=== PATIENT | male | born 1945 | race Caucasian/White ===

== ENCOUNTER 2021-08-27 08:54 | Outpatient (CLI) | payer MEDICARE | END 2021-08-27 08:55 | disposition home or self-care (01) | LOC: CSHCT 08:54 | PROVIDERS: ATTEND Internal Medicine Gastroenterology | DX: C18.6 Malignant neoplasm of descending colon (principal); K57.30 Diverticulosis of large intestine without perforation or abscess without bleeding; J44.9 Chronic obstructive pulmonary disease, unspecified; N20.0 Calculus of kidney | CPT/HCPCS: 71260; 74177; 82565 ==

== ENCOUNTER 2021-10-20 10:32 | Outpatient (CLI) | payer MEDICARE | END 2021-10-20 10:33 | disposition home or self-care (01) | LOC: CSHRAD 10:32 | PROVIDERS: ATTEND Surgery | DX: C18.9 Malignant neoplasm of colon, unspecified (principal); Z98.890 Other specified postprocedural states; K56.699 Other intestinal obstruction unspecified as to partial versus complete obstruction; Z93.2 Ileostomy status | CPT/HCPCS: 74176; 74280 ==

== ENCOUNTER 2023-03-26 14:33 | Emergency (ER) | payer MEDICARE, OTHER ==
[2023-03-26 15:44] LABS: #Basophils 0.1 10x3/uL (0.0-0.2); #Eosinphils 0.1 10x3/uL (0.0-0.5); #Monocytes 0.9 10x3/uL (0.0-1.1); #Neutrophils 6.8 10x3/uL (1.5-8.4); %Basophils 0.7 % (0.0-2.0); %Eosinophils 0.7 % (0.0-6.0); %Neutrophils 75.5 % (40.0-75.0); Hematocrit 40.4 % (38.8-50.0); Hemoglobin 13.2 g/dL (13.5-17.5); Mean Corpuscular HGB CONC 32.7 g/dL (32.0-36.0); Mean Corpuscular Hemoglobin 29.8 pg (27.0-33.0); Mean Corpuscular Volume 91.2 fl (81.2-95.1); Mean Platelet Volume 9.6 fl (7.4-10.4); Platelet Count 302 10x3/uL (150-450); RBC Distribution Width 13.6 % (11.5-14.5); Red Blood Cell (RBC) Count 4.43 10x6/uL (4.32-5.72)
[2023-03-26 15:52] LABS: ALT (SGPT) 15 U/L (8-55); AST (SGOT) 18 U/L (5-34); Albumin 3.9 g/dL (3.4-4.8); Alkaline Phosphatase 107 U/L (40-110); Anion Gap 17 mmol/L (10-20); BUN (Urea Nitrogen) 25 mg/dL (8.4-25.7); Bilirubin, Total 0.3 mg/dL (0.2-1.2); Calc. Creatinine Clearance 0 mL/min (70-130); Calcium 10.2 mg/dL (7.8-10.44); Carbon Dioxide 28 mmol/L (23-31); Chloride 102 mmol/L (98-107); Estimated GFR 52; Globulin 3.7 g/dL (2.4-3.5); Glucose 94 mg/dL (83-110); Potassium 4.5 mmol/L (3.5-5.1); Protein, Total 7.6 g/dL (5.8-8.1); Sodium 142 mmol/L (136-145)
[2023-03-26 16:38] LABS: Bilirubin Neg (Negative); Blood, Urine 50 (Negative); Clarity Clear (Clear); Glucose, Urine (Dipstick) Normal (Negative); Ketone, Urine Negative (Negative); Leukocyte Negative (Negative); Nitrite Negative (Negative); Protein, Urine (Dipstick) 15 mg/dl (Neg-Trace); Specific Gravity, Urine 1.015 (1.005-1.030); Urobilinogen Normal mg/dL (Less than 2)
[2023-03-26 17:43] LABS: Bacteria/HPF None Seen HPF (None Seen); CAUTI Indications for Culture Pelvic or flank pain; Squamous Epithelial 0-3 HPF (0-3); Urine Culture Reflex No No; WBC/HPF 0-3 HPF (0-3)
== END 2023-03-26 18:00 | disposition home or self-care (01) ==
LOC: CSHERS 14:33
DX: K62.5 Hemorrhage of anus and rectum (principal); R31.29 Other microscopic hematuria
CPT/HCPCS: 36415; 80048; 81001; 82274; 84153; 85025; 87086; 99283

== ENCOUNTER 2023-04-08 12:03 | Outpatient (CLI) | payer MEDICARE, OTHER | END 2023-04-08 12:04 | disposition home or self-care (01) | LOC: CSHCT 12:03 | PROVIDERS: ATTEND Radiology Radiation Oncology | DX: C18.9 Malignant neoplasm of colon, unspecified (principal); Z98.890 Other specified postprocedural states; R91.8 Other nonspecific abnormal finding of lung field; J43.9 Emphysema, unspecified; N20.0 Calculus of kidney; Z90.49 Acquired absence of other specified parts of digestive tract | CPT/HCPCS: 71260; 74177; 82565 ==

== ENCOUNTER 2024-09-12 11:00 | Outpatient (CLI) | payer MEDICARE | END 2024-09-12 11:01 | disposition home or self-care (01) | LOC: CSHCP 11:00 | PROVIDERS: ATTEND Student in an Organized Health Care Education/Training Program | DX: R91.1 Solitary pulmonary nodule (principal); R94.2 Abnormal results of pulmonary function studies | CPT/HCPCS: 94060; 94664; 94726; 94729; 94760 ==